=== PATIENT | female | born 1970 | race Caucasian/White ===

== ENCOUNTER → 2018-04-20 | Outpatient (CLI) | payer BC | LOC: FIMAGING 14:07 | PROVIDERS: ATTEND Specialist | DX: N20.0 Calculus of kidney (principal) ==

== ENCOUNTER → 2018-06-01 | Outpatient (CLI) | payer BC | LOC: BRMIMAGING 07:48 | PROVIDERS: ATTEND Specialist | DX: Z13.89 Encounter for screening for other disorder (principal) ==